=== PATIENT | female | born 1975 | race Two or more races ===

== ENCOUNTER 2020-12-04 08:29 | Emergency (ER) | payer OTHER ==
[2020-12-04] MEDS ORDERED: VENTOLIN HFA IN18 GM INH (10:39)
[2020-12-04] MEDS ORDERED: TESSALON PERLE100 M1 PO (10:39)
[2020-12-04] MEDS ORDERED: PREDNISONE 20MG20 MG PO (10:39)
== END 2020-12-04 10:55 | disposition home or self-care (01) ==
LOC: FER 08:29
DX: J98.01 Acute bronchospasm (principal); J06.9 Acute upper respiratory infection, unspecified; J98.4 Other disorders of lung; Z79.899 Other long term (current) drug therapy
CPT/HCPCS: 71046; J7512